=== PATIENT | female | born 1965 | race Caucasian/White ===

== ENCOUNTER → 2022-05-20 11:57 | Outpatient (CLI) | payer BC, SELFPAY | PROVIDERS: Visit Provider Family Medicine | DX: M19.011 Primary osteoarthritis, right shoulder (principal); M75.31 Calcific tendinitis of right shoulder ==

== ENCOUNTER 2022-05-20 12:19 | Outpatient (REF) | payer BC, SELFPAY ==
[2022-05-20 14:06] LABS: C-Reactive Protein 0.85 mg/dL (0.0-0.3)
== END 2022-05-20 12:20 | disposition home or self-care (01) ==
LOC: LBN 12:19
PROVIDERS: Visit Provider Family Medicine
DX: M25.511 Pain in right shoulder (principal)
CPT/HCPCS: 86140

== ENCOUNTER 2022-05-20 14:26 | Outpatient (CLI) | payer BC, SELFPAY ==
--- NOTE | 2022-05-20 13:45 | DI.RAD_ITS ---
Exam(s) XR SHOULDER RT COMPLETE 2+V EXAM: XR SHOULDER RT COMPLETE 2+V CLINICAL HISTORY: right arm pain. TECHNIQUE: 2D digital imaging was performed of the right shoulder. Three images were obtained. AP, Y-view and axillary views were obtained. COMPARISON: No exams were available for comparison FINDINGS: BONES: No acute fracture is present. No bony destructive lesion is seen. JOINTS: No dislocation present. Mild degenerative changes are seen at the acromioclavicular joint. T he glenohumeral joint is well maintained. SOFT TISSUE: Dense calcification is seen adjacent to the greater tuberosity consistent with calcific tendinitis. IMPRESSION: Osteoarthritis and calcific tendinitis of the right shoulder. DATA REPOSITORY: RADIATION DOSE DELIVERED:
== END 2022-05-20 14:27 | disposition home or self-care (01) ==
LOC: DIORS 14:27
PROVIDERS: PCP Family Medicine; Visit Provider Physician Assistant
DX: M79.601 Pain in right arm (principal); M25.511 Pain in right shoulder; M19.011 Primary osteoarthritis, right shoulder; M75.31 Calcific tendinitis of right shoulder
CPT/HCPCS: 73030

== ENCOUNTER 2022-09-16 08:50 | Outpatient (CLI) | payer BC, SELFPAY ==
--- NOTE | 2022-09-16 08:15 | DI.RAD_ITS ---
Exam(s) XR SHOULDER RT COMPLETE 2+V EXAM: XR SHOULDER RT COMPLETE 2+V CLINICAL HISTORY: right shoulder pain. TECHNIQUE: 2D digital imaging was performed. Five views. COMPARISON: CR XR SHOULDER RT COMPLETE 2+V from 05/20/2022 FINDINGS: BONES: No acute fracture is present. No bony destructive lesion is seen. JOINTS: No dislocation present. Inferior spurring at the AC joint and undersurface of the acromion. Minimal degenerative changes inferior glenohumeral joint. SOFT TISSUE: Tendon calcifications seen adjacent to the greater tuberosity. IMPRESSION: Calcific tendinosis. AC joint degenerative changes. DATA REPOSITORY: RADIATION DOSE DELIVERED:
--- NOTE | 2022-09-16 08:45 | DI.RAD_ITS ---
Exam(s) XR SHOULDER LT COMPLETE 2+V EXAM: XR SHOULDER LT COMPLETE 2+V CLINICAL HISTORY: left shoulder pain. TECHNIQUE: 2D digital imaging was performed. Two views. COMPARISON: CR XR SHOULDER RT COMPLETE 2+V from 09/16/2022 FINDINGS: BONES: No acute fracture is present. No bony destructive lesion is seen. JOINTS: No dislocation present. Mild spurring at the AC joint. Spurring from the tip of the acromio n. SOFT TISSUE: Normal. IMPRESSION: Mild degenerative changes of the AC joint. DATA REPOSITORY: RADIATION DOSE DELIVERED:
== END 2022-09-16 08:51 | disposition home or self-care (01) ==
PROVIDERS: PCP Family Medicine; Referring Provider Family Medicine; Visit Provider Physician Assistant
DX: M25.512 Pain in left shoulder (principal); M75.52 Bursitis of left shoulder; M19.012 Primary osteoarthritis, left shoulder; M25.511 Pain in right shoulder; M75.31 Calcific tendinitis of right shoulder; M19.011 Primary osteoarthritis, right shoulder
CPT/HCPCS: 73030

== ENCOUNTER 2024-07-26 09:58 | Day surgery (SDC) | payer BC, SELFPAY ==
--- NOTE | 2024-07-26 10:07 | PDOC.DSDIS_ITS ---
Date of service: 07/26/24 Time of Service: 10:08 Discharge Plan Disposition Patient Disposition: Home Condition: Good Discharge Details Reason For Visit: RMF Cyst Excision Attending Provider: Johnnie Eddy Primary Care Provider: Adina Sotelo Home Meds and New Rx's Prescriptions: New acetaminophen 500 mg tablet 1,000 mg PO TID Qty: 90 0RF ibuprofen 600 mg tablet 600 mg PO TID PRN (Reason: pain) Qty: 90 0RF Continued eszopiclone [Lunesta] 3 mg tablet 3 mg PO QHS milk thistle 500 mg capsule 500 mg PO BID Rx Instructions: give with meal/snack ascorbic acid (vitamin C) 1,000 mg capsule 1 g PO Q6H Curcumin 95 % powder miscellaneous albuterol sulfate 90 mcg/actuation aerosol powdr breath activated 2 inh inhalation Q6H PRN budesonide-formoterol 80-4.5 mcg/actuation HFA aerosol inhaler 2 puff inhalation BID mecobalamin (vitamin B12) 500 mcg tablet,chewable PO levothyroxine 75 mcg capsule 75 mcg PO DAILY Patient Comments: pt. reports taking 88 mcg phytonadione (vitamin K1) 100 mcg tablet 100 mcg PO DAILY Discontinued ibuprofen [Advil] 200 mg tablet 200 mg PO Q6H PRN acetaminophen [Tylenol] 325 mg capsule 325 mg PO ONCE PRN No Action acetaminophen [Acetaminophen Extra Strength] 500 mg tablet 500 mg PO ONCE Patient Comments: 2000 mg ibuprofen [Advil] 200 mg tablet 200 mg PO Q8H adrenal cortex (porcine) 80 mg tablet PO Patient Comments: pt states dose is 300mcg DHEA 50 mg capsule 50 mg PO DAILY Patient Comments: pt reports dose is 5mg vit D3-folic naux-G5-D1-B12 2,000-800-0.32 unit-mcg-mg tablet PO Patient Comments: pt. reports it is just vit D3, 5000 5-hydroxytryptophan (5-HTP) [5-HTP] 100 mg capsule 100 mg PO DAILY Patient Comments: dose is 200 mg calm-magnesium 350 mg exhilarin Patient Comments: pt's med list states 2 tablets tri-mag 300 Patient Comments: pt. med list states 2 tablets Discharge Instructions Additional Instructions: Cyst Excision Discharge Instructions Activity: You should keep the hand elevated as much as possible for the first few days. You may use the other fingers as tolerated but avoid trying to do too much too soon. You may perform light activities with the hand when the dressing is removed. Dressing/Cast: Your may remove your dressing after three days. You may then shower and get the icision wet Medications: - You should take Tylenol and Ibuprofen for baseline pain control. - You may apply ice over the finger. Follow-up: 7-10 days Referrals: Johnnie Eddy MD [ [facility] STAFF PHYSICIAN] - Remove Dressings/Wound Care:: 72 hours Shower/Bathe:: 72 hours Diet:: As Tolerated Discharge Orders Discharge Orders: Discharge Order (Routine); Ordered 07/26/24 Ordered By: Axel Combs Discharge Data Discharge Date/Time-TO BE ENTERED AT DEPARTURE: 07/26/24 12:56 DS: Diagnosis Discharge Diagnosis (1) Digital mucinous cyst of finger of right hand: Status: Acute
[2024-07-26] MEDS: Lidocaine 1% Multi-Dose W/EPI 1/100,000 50 ML VIAL (12:10)
[2024-07-26] MEDS: Sodium Bicarbonate 50 MEQ/50 ML VIAL (12:10)
[2024-07-26 12:29] VITALS: BP 119/69; PULSE 73; RESP 20; TEMP 36.2; O2SAT 95
--- NOTE | 2024-07-26 14:05 | W.PM.OP ---
Date of service: 07/26/24 Time of Service: 12:15 Operative Note Operative Note DATE OF PROCEDURE: 07/26/24 PRE-OP DIAGNOSIS: Right middle finger mucous cyst POST-OP DIAGNOSIS: same PROCEDURE: Mucous Cyst Excision -right middle finger SURGEON: Johnnie Eddy ANESTHESIA TYPE: Local By Surgeon Refer to Anesthesia Record ESTIMATED BLOOD LOSS: 0 PATHOLOGY: none sent COMPLICATIONS: None Patient was transported to: same day Patient's condition: stable Indications: I have seen Hui in clinic for symptoms of a digital mucous cyst. The mass persisted and caused pain to direct contact and with use. The diagnosis of a mucous cyst was made. The symptoms had not responded to conservative measures. Since the office visit till today the cyst has gone down significantly in size although she still has pain and fullness in this area. I discussed cyst excision with the patient. I reviewed the risks of the procedure to include, but not limited to, bleeding, infection, pain, stiffness, recurrence, damage to nerves or vessels. Despite these risks, the patient elected to proceed. Findings: The cyst was notably deflated all there was some cyst capsule remnant this area. There is inflammatory tissue about the DIP joint which was resected and arthrotomy was performed. Procedure Description: Hui was greeted in the preoperative holding area where the correct side was identified and marked. The consent was reviewed with the patient and signed. All questions were answered. She was taken back to the operating room. The patient was placed into the supine position on the operating room table with the right arm on an arm board. All bony prominences were well padded. No prophylactic antibiotics were administered since this was a clean, elective hand surgical case. The right arm was then prepped with Chloraprep and draped in a standard fashion with stockinette and extremity drape. A timeout to confirm correct identity, side and site, procedure, allergies, anesthesia, and medical concerns was performed. A digital block was then performed using 1% lidocaine with epinephrine and buffered with sodium bicarbonate. This was allowed time to set up completely and was tested before proceeding with the case. A longitudinal incision was then made overlying the cyst location in the area of pain. The skin was incised sharply. There is no clear cyst at this point. Ever, there was some cystic capsule which was identified. There is inflammatory and scar tissue seen in this region as well. This was dissected and followed down to the DIP joint were seen to be arising from the dorsal ulnar aspect of the DIP joint of the middle finger. Utilizing a tiny scissors and a rongeur this area was debrided and arthrotomy was performed. The wound was fully irrigated. There is no other cystic material appreciated. The skin was then closed using a #4-0 nylon in interrupted fashion. The finger was dressed with Xeroform, 4 x 4, conform dressing. The patient tolerated the procedure well and was returned to the Same Day Surgery area in a stable condition suffering no known complication.
== END 2024-07-26 12:56 | disposition home or self-care (01) ==
PROVIDERS: PCP Family Medicine; Visit Provider Student in an Organized Health Care Education/Training Program
PROC: (CPT 26160; principal; 2024-07-26 11:45)
DX: M67.441 Ganglion, right hand (principal)
CPT/HCPCS: 26160; J2004